=== PATIENT | male | born 1995 | race Caucasian/White ===

== ENCOUNTER 2020-12-19 18:07 | Emergency (ER) | payer OTHER ==
[2020-12-19] MEDS ORDERED: KEFLEX250 MG PO (21:46)
== END 2020-12-19 22:01 | disposition home or self-care (01) ==
LOC: FER 18:07
DX: S66.822A Laceration of other specified muscles, fascia and tendons at wrist and hand level, left hand, initial encounter (principal); S61.412A Laceration without foreign body of left hand, initial encounter; Z23 Encounter for immunization; W26.0XXA Contact with knife, initial encounter; Y92.009 Unspecified place in unspecified non-institutional (private) residence as the place of occurrence of the external cause
CPT/HCPCS: 73130; 90471; 90715